=== PATIENT | male | born 1980 | race Caucasian/White ===

== ENCOUNTER 2020-09-01 10:28 | Inpatient (IN) ==
[2020-09-01 14:45] LABS: Basophils % 0.1 % (0.0-0.8); Eosinophils % 0.5 % (0.00-10.9); Hematocrit 48.7 VOL% (42.0-52.0); Immature Granulocytes % 0.4 %; Immature Granulocytes Absolute 0.03 #; Lymphocytes # 1.5 10*3/uL (1.4-4.0); Mean Corpuscular HGB Conc 30.8 GM/DL (32-36); Mean Platelet Volume 10.3 FL (9.6-12.0); Monocytes % 7.6 % (1.7-12.7); Neutrophils % 73.4 % (38.7-73.9); Platelet Count 222 T/CUMM (130-400); Red Blood Count 6.01 MC/CUMM (3.8-5.5); Red Cell Distribution Width 14.6 % (9.3-17.3); White Blood Count 8.2 T/CUMM (4-12)
[2020-09-01 15:00] LABS: Albumin 3.2 G/DL (3.4-5.0); Bilirubin,Total 0.5 MG/DL (0.2-1.0); Calcium 9.1 MG/DL (8.5-10.1); Osmolality,Calculated 269.1 MOS/KG (273-304); Total Protein 8.8 G/DL (6.4-8.3)
[2020-09-01] MEDS ORDERED: DEXTROSE 50% 25 GM/50 ML VIAL IV PRN (15:39)
[2020-09-01] MEDS ORDERED: GLUCAGON 1 MG VIAL IM PRN (15:39)
[2020-09-01] MEDS ORDERED: ZALEPLON 5 MG CAPSULE PO PRN (15:39)
[2020-09-01] MEDS ORDERED: ONDANSETRON 4 MG/2 ML VIAL IV PRN (15:39)
[2020-09-01] MEDS ORDERED: cefTRIAXone 1,000 MG in SYRINGE 1 EACH IV SCH (16:00)
[2020-09-01 16:38] LABS: Ferritin 555.1 ng/ml (26-388)
[2020-09-01] MEDS: DEXAMETHASONE 4 MG/1 ML VIAL IV SCH (17:30)
[2020-09-01] MEDS: CHOLECALCIFEROL 1,000 UNIT TABLET PO SCH (17:31)
[2020-09-01] MEDS: CETIRIZINE 10 MG TABLET PO SCH (17:31)
[2020-09-01] MEDS: ZINC GLUCONATE 50 MG TABLET PO SCH (17:31)
[2020-09-01] MEDS: ALBUTEROL INHALER 18 GM INH SCH (20:47)
[2020-09-01] MEDS: ENOXAPARIN 40 MG/0.4 ML SYRINGE SUBCUT SCH (21:44)
[2020-09-01] MEDS: MELATONIN 3 MG TABLET PO PRN (21:44)
[2020-09-01] MEDS: ASCORBIC ACID 500 MG TABLET PO SCH (21:44)
[2020-09-01] MEDS: ACETAMINOPHEN 325 MG TABLET PO PRN (21:44)
[2020-09-02] MEDS: ALBUTEROL INHALER 18 GM INH SCH ×4 (00:42→19:44)
[2020-09-02 05:53] LABS: Basophils % 0.2 % (0.0-0.8); Hematocrit 47.5 VOL% (42.0-52.0); Hemoglobin 14.8 GM/DL (14.0-18.0); Immature Granulocytes % 0.5 %; Immature Granulocytes Absolute 0.03 #; Mean Corpuscular HGB Conc 31.2 GM/DL (32-36); Mean Corpuscular Volume 80.5 FL (87-102); Mean Platelet Volume 10.2 FL (9.6-12.0); Monocytes % 4.1 % (1.7-12.7); Neutrophils % 77.2 % (38.7-73.9); Platelet Count 271 T/CUMM (130-400); White Blood Count 5.6 T/CUMM (4-12)
[2020-09-02 06:30] LABS: Albumin 2.9 G/DL (3.4-5.0); Bilirubin,Total 0.6 MG/DL (0.2-1.0); Calcium 9.2 MG/DL (8.5-10.1); Ferritin 546.3 ng/ml (26-388); Osmolality,Calculated 267.4 MOS/KG (273-304); Potassium 5.3 MMOL/L (3.5-5.1); Total Protein 8.9 G/DL (6.4-8.3)
[2020-09-02 08:28] LABS: Hypochromasia 1+; Lymphocytes 15 % (20-55); Microcytosis 1+; Segmented Neutrophils 79 % (50-85); Total Cells Counted 100
[2020-09-02 08:29] LABS: Atypical Lymphocytes Few; Platelet Estimate Normal
[2020-09-02] MEDS: ASCORBIC ACID 500 MG TABLET PO SCH ×2 (08:35→20:30)
[2020-09-02] MEDS: DEXAMETHASONE 4 MG/1 ML VIAL IV SCH (08:36)
[2020-09-02] MEDS: ZINC GLUCONATE 50 MG TABLET PO SCH ×2 (08:36→14:10)
[2020-09-02] MEDS: CHOLECALCIFEROL 1,000 UNIT TABLET PO SCH (08:36)
[2020-09-02] MEDS: PANTOPRAZOLE 40 MG TABLET PO SCH (08:36)
[2020-09-02] MEDS: CETIRIZINE 10 MG TABLET PO SCH (08:36)
[2020-09-02] MEDS ORDERED: AZITHROMYCIN 250 MG TABLET PO SCH (09:00)
[2020-09-02] MEDS ORDERED: REMDESIVIR 200 MG in SODIUM CHLORIDE 0.9% 210 ML IV ONE (10:00)
[2020-09-02] MEDS: DULoxetine 30 MG CAPSULE PO SCH (14:09)
[2020-09-02] MEDS: ENOXAPARIN 40 MG/0.4 ML SYRINGE SUBCUT SCH (20:30)
[2020-09-03] MEDS: ALBUTEROL INHALER 18 GM INH SCH ×4 (00:06→19:38)
[2020-09-03 04:13] LABS: Basophils % 0.1 % (0.0-0.8); Hematocrit 42.6 VOL% (42.0-52.0); Hemoglobin 13.9 GM/DL (14.0-18.0); Immature Granulocytes % 0.7 %; Immature Granulocytes Absolute 0.06 #; Lymphocytes % 12.2 % (21.2-54.2); Mean Corpuscular HGB Conc 32.6 GM/DL (32-36); Mean Corpuscular Volume 77.5 FL (87-102); Mean Platelet Volume 9.9 FL (9.6-12.0); Monocytes % 7.9 % (1.7-12.7); Neutrophils % 79.1 % (38.7-73.9); Platelet Count 299 T/CUMM (130-400)
[2020-09-03 04:43] LABS: Albumin 2.7 G/DL (3.4-5.0); Bilirubin,Total 0.8 MG/DL (0.2-1.0); Calcium 8.6 MG/DL (8.5-10.1); Osmolality,Calculated 276.7 MOS/KG (273-304); Potassium 4.4 MMOL/L (3.5-5.1); Total Protein 7.6 G/DL (6.4-8.3)
[2020-09-03 05:06] LABS: Platelet Estimate Normal
[2020-09-03] MEDS: ASCORBIC ACID 500 MG TABLET PO SCH ×2 (09:21→20:51)
[2020-09-03] MEDS: ZINC GLUCONATE 50 MG TABLET PO SCH (09:21)
[2020-09-03] MEDS: DULoxetine 30 MG CAPSULE PO SCH (09:22)
[2020-09-03] MEDS: PANTOPRAZOLE 40 MG TABLET PO SCH (09:22)
[2020-09-03] MEDS: DEXAMETHASONE 4 MG/1 ML VIAL IV SCH (09:22)
[2020-09-03] MEDS: CHOLECALCIFEROL 1,000 UNIT TABLET PO SCH (09:22)
[2020-09-03] MEDS: CETIRIZINE 10 MG TABLET PO SCH (09:22)
[2020-09-03] MEDS: REMDESIVIR 100 MG in SODIUM CHLORIDE 0.9% 100 ML IV SCH (09:23)
[2020-09-03] MEDS: ENOXAPARIN 40 MG/0.4 ML SYRINGE SUBCUT SCH (20:51)
[2020-09-04] MEDS: ALBUTEROL INHALER 18 GM INH SCH ×4 (00:19→19:43)
[2020-09-04 07:15] LABS: Basophils % 0.1 % (0.0-0.8); Hematocrit 43.6 VOL% (42.0-52.0); Hemoglobin 14.1 GM/DL (14.0-18.0); Immature Granulocytes % 0.5 %; Immature Granulocytes Absolute 0.05 #; Lymphocytes # 1.6 10*3/uL (1.4-4.0); Lymphocytes % 15.7 % (21.2-54.2); Mean Corpuscular HGB Conc 32.3 GM/DL (32-36); Mean Corpuscular Volume 77.9 FL (87-102); Mean Platelet Volume 9.6 FL (9.6-12.0); Neutrophils % 72.7 % (38.7-73.9); Platelet Count 326 T/CUMM (130-400); Red Cell Distribution Width 14.2 % (9.3-17.3); White Blood Count 10.1 T/CUMM (4-12)
[2020-09-04 07:31] LABS: Albumin 2.8 G/DL (3.4-5.0); Calcium 8.9 MG/DL (8.5-10.1); Osmolality,Calculated 276.7 MOS/KG (273-304); Potassium 4.3 MMOL/L (3.5-5.1); Total Protein 7.4 G/DL (6.4-8.3)
[2020-09-04] MEDS: DEXAMETHASONE 4 MG/1 ML VIAL IV SCH (09:07)
[2020-09-04] MEDS: DULoxetine 30 MG CAPSULE PO SCH (09:08)
[2020-09-04] MEDS: ASCORBIC ACID 500 MG TABLET PO SCH ×2 (09:08→20:37)
[2020-09-04] MEDS: ZINC GLUCONATE 50 MG TABLET PO SCH (09:08)
[2020-09-04] MEDS: CHOLECALCIFEROL 1,000 UNIT TABLET PO SCH (09:08)
[2020-09-04] MEDS: PANTOPRAZOLE 40 MG TABLET PO SCH (09:09)
[2020-09-04] MEDS: CETIRIZINE 10 MG TABLET PO SCH (09:09)
[2020-09-04] MEDS: REMDESIVIR 100 MG in SODIUM CHLORIDE 0.9% 100 ML IV SCH (09:10)
[2020-09-04] MEDS: ENOXAPARIN 40 MG/0.4 ML SYRINGE SUBCUT SCH ×2 (11:58→22:32)
[2020-09-05] MEDS: ALBUTEROL INHALER 18 GM INH SCH ×4 (00:09→18:29)
[2020-09-05 06:40] LABS: Basophils % 0.1 % (0.0-0.8); Eosinophils % 0.3 % (0.00-10.9); Hematocrit 43.1 VOL% (42.0-52.0); Hemoglobin 14.2 GM/DL (14.0-18.0); Immature Granulocytes % 0.9 %; Lymphocytes % 18.4 % (21.2-54.2); Mean Corpuscular HGB Conc 32.9 GM/DL (32-36); Mean Corpuscular Volume 77.9 FL (87-102); Mean Platelet Volume 9.9 FL (9.6-12.0); Monocytes % 11.1 % (1.7-12.7); Neutrophils % 69.2 % (38.7-73.9); Platelet Count 350 T/CUMM (130-400); Red Blood Count 5.53 MC/CUMM (3.8-5.5); Red Cell Distribution Width 14.2 % (9.3-17.3)
[2020-09-05 07:15] LABS: Albumin 2.9 G/DL (3.4-5.0); Bilirubin,Total 1.1 MG/DL (0.2-1.0); Calcium 8.9 MG/DL (8.5-10.1); Osmolality,Calculated 273.8 MOS/KG (273-304); Total Protein 7.5 G/DL (6.4-8.3)
[2020-09-05] MEDS: DULoxetine 30 MG CAPSULE PO SCH (08:34)
[2020-09-05] MEDS: DEXAMETHASONE 4 MG/1 ML VIAL IV SCH (08:34)
[2020-09-05] MEDS: ZINC GLUCONATE 50 MG TABLET PO SCH (08:38)
[2020-09-05] MEDS: PANTOPRAZOLE 40 MG TABLET PO SCH (08:38)
[2020-09-05] MEDS: CHOLECALCIFEROL 1,000 UNIT TABLET PO SCH (08:38)
[2020-09-05] MEDS: CETIRIZINE 10 MG TABLET PO SCH (08:39)
[2020-09-05] MEDS: REMDESIVIR 100 MG in SODIUM CHLORIDE 0.9% 100 ML IV SCH (08:39)
[2020-09-05] MEDS: ASCORBIC ACID 500 MG TABLET PO SCH ×2 (08:39→22:12)
[2020-09-05] MEDS: ENOXAPARIN 40 MG/0.4 ML SYRINGE SUBCUT SCH ×2 (12:14→22:13)
[2020-09-05] MEDS: MELATONIN 3 MG TABLET PO PRN (22:12)
[2020-09-05] MEDS: ACETAMINOPHEN 325 MG TABLET PO PRN (22:12)
[2020-09-06] MEDS: ALBUTEROL INHALER 18 GM INH SCH ×2 (00:38→08:59)
[2020-09-06 06:10] LABS: Basophils % 0.3 % (0.0-0.8); Eosinophils # 0.1 10*3/uL (0.0-0.87); Eosinophils % 0.6 % (0.00-10.9); Hematocrit 42.9 VOL% (42.0-52.0); Hemoglobin 14.4 GM/DL (14.0-18.0); Immature Granulocytes % 1.8 %; Immature Granulocytes Absolute 0.21 #; Lymphocytes % 17.6 % (21.2-54.2); Mean Corpuscular HGB Conc 33.6 GM/DL (32-36); Mean Platelet Volume 9.9 FL (9.6-12.0); Monocytes % 10.7 % (1.7-12.7); Platelet Count 351 T/CUMM (130-400); Red Blood Count 5.57 MC/CUMM (3.8-5.5); Red Cell Distribution Width 13.9 % (9.3-17.3); White Blood Count 11.5 T/CUMM (4-12)
[2020-09-06] MEDS: CETIRIZINE 10 MG TABLET PO SCH (08:58)
[2020-09-06] MEDS: DULoxetine 30 MG CAPSULE PO SCH (08:58)
[2020-09-06] MEDS: PANTOPRAZOLE 40 MG TABLET PO SCH (08:58)
[2020-09-06] MEDS: CHOLECALCIFEROL 1,000 UNIT TABLET PO SCH (08:58)
[2020-09-06] MEDS: ASCORBIC ACID 500 MG TABLET PO SCH (08:58)
[2020-09-06] MEDS: ZINC GLUCONATE 50 MG TABLET PO SCH (08:59)
[2020-09-06] MEDS: DEXAMETHASONE 4 MG/1 ML VIAL IV SCH (08:59)
[2020-09-06] MEDS: REMDESIVIR 100 MG in SODIUM CHLORIDE 0.9% 100 ML IV SCH (08:59)
[2020-09-06] MEDS: ENOXAPARIN 40 MG/0.4 ML SYRINGE SUBCUT SCH (11:02)
[2020-09-06 11:59] VITALS: BP 113/64
== END 2020-09-06 12:15 | disposition home or self-care (01) | DRG 177 ==
LOC: N.ED 10:28 → N.EDINP 10:28 → SUATTDRO 15:39 → N.2E 17:08 → SUATTDRO 09-02 14:08
PROVIDERS: ADMIT Internal Medicine; ATTEND Internal Medicine